=== PATIENT | female | born 1960 | race Caucasian/White ===

== ENCOUNTER 2018-08-27 07:08 | Day surgery (SDC) | payer MEDICAID ==
[2018-08-27] VITALS (14 sets, daily range): BP systolic 128–156; BP diastolic 70–97; BMI 55.0; BMI 57.2
[~2018-08-27] VITALS: Ht 167.6 cm; Wt 160.5 kg
--- NOTE | ~2018-08-27 | OP ---
PATIENT NAME: GEE JOHN MEDICAL RECORD: [id number] :56 LOCATION:D.OPS ADMISSION DATE: SURGEON: JOMAR SAGASTUME MD DATE OF OPERATION: 08/27/2018 PREOPERATIVE DIAGNOSES: Disc herniation and osteophyte formation at C5-C6 and C6-C7. POSTOPERATIVE DIAGNOSES: Disc herniation and osteophyte formation at C5-C6 and C6-C7. SURGEON: Jomar Sagastume MD PRIMARY CARE DOCTOR: Dr. Orr at [facility]. PROCEDURE: Anterior cervical discectomy and fusion at C5-C6 and C6-C7, removal of osteophytes, anterior cervical plate and screws with [employer], the separate PEEK interbody cage at C5-C6 and C6-C7, Gisela bone allograft with stem cells. DESCRIPTION OF TECHNIQUE: After induction of general endotracheal anesthesia, the patient was positioned supine on the operating table with interscapular roll. The neck was prepped and draped in usual sterile fashion. Fluoroscopic x-ray and [place] dissector localized the C5-C6 interspace. A 1:100,000 epinephrine and 1% lidocaine was infiltrated in the subcutaneous tissues. A transverse skin incision was carried out from the midline to the sternocleidomastoid muscle. The platysma was divided with Bovie cautery. Using blunt and sharp dissection with Metzenbaum scissors, I proceeded in avascular plane medial to the carotid sheath. The C5-C6 interspace was confirmed with fluoroscopic x-ray and a spinal needle. The longus colli muscles were elevated from bodies of C5, C6, and C7. A self-retaining retractor was placed deep to the longus colli muscles. Osteophytes were removed anteriorly with Adson rongeurs. A [place] distracting pins were placed in the bodies of C5, C6, and C7. The disc space was distracted. Each disc space at C5-C6 and C6-C7 was incised with #11 blade. The disc material was removed with pituitary rongeurs and curettes. Posteriorly, a microscope and [place] drill were used to remove osteophytes. The posterior longitudinal ligaments removed with Cloward rongeurs. Following this, the dura was decompressed well. A PEEK interbody cage was placed in each interspace under distraction. Prior to this, it was filled with Gisela bone allograft with stem cells. Next, a [employer] anterior cervical plate and screws was used to span the C5-C6 and C6-C7 interspaces. Self-drilling screws were placed through the holes in the plate. Locking cams were tightened down the screw heads. Good position of the hardware was confirmed with fluoroscopic x-ray. Meticulous hemostasis was maintained throughout the wound. Wound was irrigated with copious amounts of Ancef irrigant solution. The platysma and subdermal layer closed with interrupted 3-0 Vicryl suture. The skin was reapproximated with Steri-Strips and benzoin. A sterile dressing was applied to the wound. The patient was awakened in good condition, taken to recovery. All counts were reported as correct. Estimated blood loss was minimal. TRANSINT:[id number] Voice Confirmation ID: [id number] DOCUMENT ID: [id number] OPERATIVE REPORT [id number] GEE JOHN JOHN MD CC: [id number] DICTATION DATE: 09/07/18810 TUBE LASER OPERATOR: 09/07/18 [id number] [facility] 08/28/[address] [address]
[~2018-08-27 07:08] MED LIST: BACLOFEN10 MG PO; K-TAB10 MEQ PO; LASIX40 MG PO; LISINOPRIL20 MG PO; SYNTHROID50 MCG PO; TORADOL10 MG PO
[2018-08-27 07:25] LABS: BASOPHILS 0.2 % (0-2); EOSINOPHILS 3.5 % (0-7); HEMATOCRIT 45.3 % (36.0-48.0); HEMOGLOBIN 14.3 g/dL (12-16); IMMATURE GRANULOCYTES 0.2 % (0-5); LYMPHOCYTES 29.9 % (15-50); MCH 28.4 pg (26.0-34.0); MCHC 31.6 g/dL (31.0-37.0); MCV 89.9 fL (80.0-100.0); MEAN PLATELET VOLUME 9.6 fL (7.4-10.4); MONOCYTES 11.8 % (2-11); NEUTROPHILS 54.4 % (40-80); PLATELET COUNT 234 10x3/uL (130-400); RBC 5.04 10x6/uL (4.00-5.40); RDW 15.1 % (11.5-14.5); WBC 8.7 10x3/uL (4.8-10.8)
[2018-08-27 07:33] LABS: CALC OSMOLALITY 286 mosm/kg (275-300); CALCIUM 8.7 mg/dL (8.5-10.1); CARBON DIOXIDE 30.1 mmol/L (21.0-32.0); CHLORIDE - SERUM 105 mmol/L (98-107); CREATININE - SERUM 0.8 mg/dL (0.6-1.3); GLUCOSE 111 mg/dL (74-106); POTASSIUM - SERUM 3.8 mmol/L (3.5-5.1); SODIUM 143 mmol/L (136-145); UREA NITROGEN 16 mg/dL (7-18); eGFR NON AFRICAN AMERICAN 77 mL/min (90-120)
[2018-08-27 07:38] LABS: APTT 31.9 SECONDS (22.8-39.4); INR 1.07 (0.85-1.17); PROTIME 13.4 SECONDS (11.6-15.0)
--- NOTE | 2018-08-27 16:38 | NUR ---
PT RECIEVED ALERT AND OREINTED O2 4L NC DECREASED TO 2L VSS DENIES PAIN R NECK INCISION GLUE WNL, LFA PIV INFUSING WITHOUT DIFFICULTY, BORJA DRAINING YELLOW URINE, CALL LIGHT WITHIN REACH, NO FAMILY IN WAITING ROOM 1640 PT FAMILY ARRIVED AND SECURITY CODE SET UP
[2018-08-28] VITALS (10 sets, daily range): BP systolic 95–133; BP diastolic 47–80; Ht 167.6 cm; Wt 160.5 kg
--- NOTE | 2018-08-28 08:00 | NUR ---
SOFT C COLLAR APPLIED. BORJA DC'D AND IV IS SALINE LOCKED. NO DIFFICULTY SWALLOWING. INCISION APPROXIMATED. NO ERYTHEMA OR EDEMA.
== END 2018-08-28 14:12 | disposition home or self-care (01) ==
LOC: D.OPS 07:08 → D.CVICU 07:08 → D.PAN 10:00 → D.OPS 10:00 → D.CVICU 15:03 → D.OPS 08-28 14:12
PROVIDERS: Anesthesiology; ATTEND Neurological Surgery
DX: M50.122 Cervical disc disorder at C5-C6 level with radiculopathy (principal); M25.78 Osteophyte, vertebrae; Z01.812 Encounter for preprocedural laboratory examination